=== PATIENT | female | born 1955 | race Caucasian/White ===

== ENCOUNTER 2016-11-01 19:52 | Emergency (ER) | payer OTHER ==
[2016-11-01] MEDS ORDERED: XYLOCAINE 1% INJ ONE (20:11)
[2016-11-01] MEDS ORDERED: BOOSTRIX VACCINE IM ONE (20:11)
--- NOTE | 2016-11-01 20:42 | PROVIDER DOCUMENTATION ---
HPI-Musculoskeletal Pain/Inj - GENERAL Chief Complaint: Laceration[s] Stated Complaint: LT HAND THUMB LAC Time Seen by Provider: 11/01/16 20:05 Source: patient - HX OF PRESENT ILLNESS-MUSKULOSKELTAL Nature of Presenting Problem: Pt is a 60 y/o F c chief complaint of laceration to her L volar aspect of her thumb that occurred this evening while she was pealing a turnip. Pt noted decreased ROM to her thumb. She denies any loss of sensation. On arrival at the ER, bleeding is controlled by direct pressure. Review of Systems - Adult - REVIEW OF SYSTEMS - ADULT Constitutional: reports: no symptoms reported. denies: chills, fatique Eyes: reports: no symptoms reported. denies: blurred vision, double vision Ears, Nose, Mouth & Throat: reports: no symptoms reported. denies: ear pain, nose pain Cardiovascular: reports: no symptoms reported. denies: chest pain, irregular heart rate Respiratory: reports: no symptoms reported. denies: cough, shortness of breath Gastrointestinal: reports: no symptoms reported. denies: abdominal pain, nausea Genitourinary: reports: no symptoms reported. denies: dysuria, hematuria Musculoskeletal: reports: joint pain, muscle aches, muscle weakness. denies: joint swelling Integumentary: reports: see HPI, skin sores/ulcer. denies: hives, itching Neurological: reports: numbness. denies: paresthesia Psychiatric: reports: no symptoms reported. denies: anxiety, emotional problems Endocrine: reports: no symptoms reported. denies: cold intolerance, heat intolerance Hematologic/Lymphatic: reports: no symptoms reported. denies: blood clots, low blood count Allergic/Immunologic: reports: no symptoms reported. denies: allergic reactions , food allergy All Other Systems: Reviewed and Negative Past History - Adult - PAST MEDICAL HISTORY-ADULT Review of Records: reports: Old Records Reviewed, Nursing Assessment Review, Medications Reviewed, Social history reviewed & non-contributory. 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 Psychiatric: reports: depression Endocrine/Immune: reports: thyroid disorder Other Conditions: reports: denies history - IMMUNIZATION STATUS Childhood Immunizations: See Nurse Assessment Flu Vaccine: See Nurse Assessment - FAMILY HISTORY Family History: reviewed, not pertinent - SOCIAL HISTORY Smoking: denies Substance Use: none/never Alcohol Use Frequency: never Living Situation: family Physical Exam-Injury Related - Physical Exam-Injury Related Initial Vital Signs Reviewed: Yes General Appearance: appears well, alert, no apparent distress Eyes: PERRL/EOMI, pink conjunctivae Head, Ears, Nose, Mouth & Throat: normocephalic/atraumatic, moist mucous membranes, normal ENT inspection Neck: non-tender, full range of motion, supple Respiratory: chest non-tender, lungs clear, normal breath sounds Cardiovascular: normal peripheral pulses, regular rate, rhythm, no edema Abdominal Exam: normal bowel sounds, non tender, soft Lymphatic: no adenopathy Back Exam: normal inspection, no CVA tenderness Extremity: tenderness (L THUMB C 2CM LACERATION C EXPOSED FLEXOR TENDON; DECREASED ROM - PT UNABLE TO FLEX THUMB AT DIP JOINT) Integumentary: normal color, warm/dry, blanching Neurologic: grossly normal, no motor/sensory deficits Psych/Mental Status: normal mood/affect, normal thought content, normal thought process, oriented x 3 - Glascow Coma Score Best Eye Response ([place]): (4) open spontaneously Best Verbal Response ([place]): (5) oriented Best Motor Response (Betty): (6) obeys commands Progress - PLAN OF CARE/RESULTS Progress/Plan/Lab Results: Orders Category Date Time Status Laceration Set up DIRECTED Care 11/01/16 20:11 Active Wound Care DIRECTED Care 11/01/16 20:11 Active Wrist Splint DIRECTED Care 11/01/16 20:41 Active Diph,Pertuss(Acell),Tet Vac/Pf [Boostrix Vaccine] Med 11/01/16 20:11 Discontinued 0.5 ml IM .ONCE ONE Lidocaine 1% [Xylocaine 1%] Med 11/01/16 20:11 Discontinued 10 ml INJ NOW ONE Vital Signs - 24 hr 11/01/16 19:55 Temperature 97.9 F Pulse Rate 94 H Respiratory 18 Rate Blood Pressure 182/84 O2 Sat by Pulse 97 Oximetry - CONSULTS/PCP/HOSPITALIST Notification #1 *Consult/PCP/Hospitalist*: Dr. Greene (Ortho) Time Discussed: 20:40 (Wash out wound wound. Superficially close with suture. Place in thumb spica splint. Have pt f/u c [facility] or [facility] on Friday.) Procedures - LACERATION/WOUND REPAIR/FB Left Finger Wound Location: Other: L THUMB Wound Length: 2 CM Wound's Depth, Shape: into muscle, linear Wound Explored/Foreign Body: clean Irrigated with Saline?: Yes (1 LITER NORMAL SALINE) Prepped with: Betadine Anesthetic: 1%, Lidocaine/Xylocaine Volume of Anesthetic (ml's): 8 Wound Debrided: minimal Suture Size/Type: 5.0, Non-Absorbable, Nylon Number of Sutures: 1 (SIMPLE RUNNING) Layer Closure?: No Sterile Dressing Applied?: Yes Splint Applied?: Yes (THUMB SPICA SPLINT) Sling Applied?: No Post Procedure Neurovascular Exam: Abnormal (FLEXOR TENDON INJURY) Procedure Comment: WELL TOLERATED Departure - Departure Time of Disposition Order: 20:47 DIAGNOSIS: Laceration of thumb with tendon involvement Qualifiers: Encounter type: initial encounter Laterality: left Qualified Code(s): S61.012A - Laceration without foreign body of left thumb without damage to nail, initial encounter Disposition: HOME 01 Certified Medical Emergency: Emergent Condition: Stable Additional Instructions: FOLLOW UP WITH [facility] ON FRIDAY. ED Follow Up Instructions: You have been treated by a care provider in the Emergency Department. These instructions are being provided to you so you can have an understanding of how to care for yourself upon discharge. Upon discharge from the Emergency Department, you are responsible for making arrangements for follow-up care by a physician of your choice. Take all prescribed medications as directed. Return to the Emergency Department immediately for any new or worsening symptoms. You may call the Physician Referral phone number at [phone] to obtain a list of Physicians who are taking new patients. Prescriptions: Cephalexin [Keflex] 500 mg PO BID #14 capsule Hydrocodone/APAP 7.5 mg/325 mg [Whitney-7.5] 1 each PO Q6H PRN PRN #10 tablet PRN Reason: Pain Referrals: Sheldon Lee MD [Primary Care Provider] - [facility] [Provider Group] Forms: Return to School/Parent Work Instructions: Laceration Care, Adult, [id number] Attestation - Physician/ SOCORRO Attestation Patient care was provided by Advanced Practice Provider:: Yes Advanced Practice Provider:: Gonsalo Negron Advanced Practice Provider documentation review:: The Mid-level provider documentation, treatment plan and medical decision making was reviewed by the physician who agrees with all treatment and medical decision making by the MLP.
[2016-11-01 21:44] VITALS: BP 153/73
== END 2016-11-01 21:59 | disposition home or self-care (01) ==
LOC: ED 19:52
DX: S56.022A Laceration of flexor muscle, fascia and tendon of left thumb at forearm level, initial encounter (principal); W26.0XXA Contact with knife, initial encounter; M79.1 Myalgia; M62.81 Muscle weakness (generalized); M25.542 Pain in joints of left hand; I10 Essential (primary) hypertension; E78.5 Hyperlipidemia, unspecified; E07.9 Disorder of thyroid, unspecified; Z23 Encounter for immunization
CPT/HCPCS: 90715